=== PATIENT | male | born 1955 | race Caucasian/White ===

== ENCOUNTER 2019-06-23 11:32 | Inpatient (IN) ==
[2019-06-23] MEDS ORDERED: Famotidine 20 MG/2 ML VIAL IVP ONE (12:47)
[2019-06-23] MEDS ORDERED: Acetaminophen IV 1,000 MG/100 ML INFUS..BTL IVPB ONE (12:47)
[2019-06-23] MEDS ORDERED: Pregabalin 75 MG CAPSULE PO ONE (12:47)
[2019-06-23] MEDS ORDERED: CeFAZolin Syr 2,000MG/20 ML 2,000 MG/20 ML SYRINGE IVPB ONE (12:51)
[2019-06-23] MEDS ORDERED: *HR* HYDROmorphone 2 MG TABLET PO PRN (12:51)
[2019-06-23] MEDS ORDERED: Albuterol 2.5 MG/3 ML NEBULIZER IH PRN (12:51)
[2019-06-23] MEDS ORDERED: *HR* OxyCODONE Immed Rel 5 MG TABLET PO PRN (12:51)
[2019-06-23] MEDS ORDERED: *HR* Promethazine 25 MG/ML VIAL IVP PRN (12:51)
[2019-06-23] MEDS ORDERED: *HR* Labetalol 20 MG/4 ML SYRINGE IVP PRN (12:53)
[2019-06-23] MEDS ORDERED: Lidocaine -MPF 2% 2 ML VIAL ONE (12:55)
[2019-06-23] MEDS ORDERED: Ondansetron 4 MG/2 ML VIAL ONE (12:55)
[2019-06-23] MEDS ORDERED: *HR* Rocuronium Bromide 50 MG/5 ML VIAL ONE (12:55)
[2019-06-23] MEDS ORDERED: *HR* FentaNYL (PF) 100 MCG/2 ML VIAL ONE (12:55)
[2019-06-23] MEDS ORDERED: *HR* Propofol 200 MG/20 ML VIAL IVP ONE (12:55)
[2019-06-23] MEDS ORDERED: Dexamethasone 4 MG/ML VIAL ONE (12:55)
[2019-06-23] MEDS ORDERED: Ringers Solution, Lactated 1,000 ML IVC SCH ×2 (13:00→21:03)
[2019-06-23] MEDS: Celecoxib 200 MG CAPSULE PO ONE (13:05)
[2019-06-23 14:00] LABS: INR 1.6; Prothrombin Time 17.9 Seconds (9.4-12.1)
[2019-06-23 14:03] LABS: Activated Partial Thrombo Time 39.6 Seconds (26.0-36.0)
[2019-06-23] MEDS ORDERED: *HR* Labetalol 20 MG/4 ML SYRINGE IVP ONE (15:03)
[2019-06-23] MEDS: *HR* OxyCODONE/APAP 5/325 TABLET PO PRN (16:05)
[2019-06-23] MEDS ORDERED: *HR* Warfarin 1 MG TABLET PO SCH (21:15)
[2019-06-24] MEDS: *HR* OxyCODONE/APAP 5/325 TABLET PO PRN ×3 (01:24→20:14)
[2019-06-24] MEDS ORDERED: Ipratropium/Albuterol Neb 3 ML IH STA (09:08)
[2019-06-24] MEDS: Aspirin Enteric Coated 81 MG Tablet PO SCH (10:14)
[2019-06-24] MEDS: Furosemide 20 MG TABLET PO SCH (10:14)
[2019-06-24] MEDS ORDERED: Ibuprofen 800 MG TABLET PO ONE (13:51)
[2019-06-24] MEDS ORDERED: Acetaminophen 325 MG TABLET PO PRN (14:26)
[2019-06-24] MEDS ORDERED: *HR* FentaNYL (PF) 100 MCG/2 ML VIAL IVP ONE (15:06)
[2019-06-24 15:31] LABS: Basophils % 0.2 %; Immature Granulocytes % 0.6 % (0-4)
[2019-06-24 15:32] LABS: Eosinophils % 0.1 %; Hematocrit 36.9 % (37.5-50.1); Lymphocytes # 2.7 K/mcL (0.6-4.6); Lymphocytes % 13.7 %; Mean Corpuscular HGB Conc 29.8 g/dL (31.6-35.5); Mean Corpuscular Hemoglobin 24.1 pg (28.0-33.3); Mean Corpuscular Volume 80.7 fL (83.0-100.0); Monocytes # 1.9 K/mcL (0.0-1.3); Monocytes % 9.6 %; Neutrophils # 14.9 K/mcL (1.6-8.9); Platelet Count 323 K/mcL (140-400); Red Blood Count 4.57 M/mcL (4.19-5.50); Red Cell Distribution Width 16.1 % (11.5-14.5); Segmented Neutrophils % 75.8 %; White Blood Count 19.7 K/mcL (4.3-11.1)
[2019-06-24 15:54] LABS: BUN/Creatinine Ratio 19 (6-26); Blood Urea Nitrogen 17 mg/dL (8-23); Calcium 9.2 mg/dL (8.6-10.3); Carbon Dioxide 32 mEq/L (23-29); Chloride 101 mEq/L (98-107); Glucose 135 mg/dL (70-105); Osmolality,Calculated 288 (280-300); Potassium 4.2 mEq/L (3.5-5.1); Sodium 137 mEq/L (136-145); eGFR For African Americans > 60 (> 60); eGFR For Non-African Americans > 60 (> 60)
[2019-06-24] MEDS: Ipratropium/Albuterol Neb 3 ML IH SCH ×2 (16:13→21:16)
[2019-06-24 16:20] LABS: INR 1.5
[2019-06-24] MEDS ORDERED: *HR* Enoxaparin 120 MG/0.8 ML SYRINGE SQ SCH (18:00)
[2019-06-24] MEDS: Furosemide 40 MG/4 ML VIAL IVP ONE (18:00)
[2019-06-24] MEDS ORDERED: *HR* Warfarin 5 MG TABLET PO SCH (18:00)
[2019-06-24] MEDS: *HR* Enoxaparin 120 MG/0.8 ML SYRINGE SQ SCH (18:00)
[2019-06-24] MEDS ORDERED: Warfarin perPT PO PRN (18:00)
[2019-06-25] MEDS: *HR* OxyCODONE/APAP 5/325 TABLET PO PRN ×3 (03:37→18:14)
[2019-06-25] MEDS: Ipratropium/Albuterol Neb 3 ML IH SCH ×4 (04:09→22:26)
[2019-06-25] MEDS: *HR* Enoxaparin 120 MG/0.8 ML SYRINGE SQ SCH ×2 (05:59→18:14)
[2019-06-25 06:00] LABS: INR 1.9; Prothrombin Time 21.9 Seconds (9.4-12.1)
[2019-06-25 07:39] LABS: Potassium 4.7 mEq/L (3.5-5.1)
[2019-06-25 07:44] LABS: Basophils # 0.1 K/mcL (0.0-0.2); Basophils % 0.3 %; Immature Granulocytes % 0.5 % (0-4); Lymphocytes # 2.6 K/mcL (0.6-4.6); Lymphocytes % 12.2 %; Mean Corpuscular HGB Conc 29.4 g/dL (31.6-35.5); Mean Corpuscular Hemoglobin 24.2 pg (28.0-33.3); Mean Corpuscular Volume 82.5 fL (83.0-100.0); Mean Platelet Volume 11.1 fL (9.4-12.4); Monocytes # 2.9 K/mcL (0.0-1.3); Monocytes % 13.4 %; Neutrophils # 15.9 K/mcL (1.6-8.9); Platelet Count 298 K/mcL (140-400); Red Blood Count 3.88 M/mcL (4.19-5.50); Red Cell Distribution Width 16.3 % (11.5-14.5); Segmented Neutrophils % 73.6 %; White Blood Count 21.6 K/mcL (4.3-11.1)
[2019-06-25 07:45] LABS: Hemoglobin 9.4 g/dL (12.9-16.9)
[2019-06-25] MEDS ORDERED: Acetaminophen 325 MG TABLET PO PRN (08:48)
[2019-06-25] MEDS ORDERED: Metoclopramide 10 MG/2 ML VIAL IVP SCH (09:07)
[2019-06-25] MEDS: Aspirin Enteric Coated 81 MG Tablet PO SCH (10:17)
[2019-06-25] MEDS: Furosemide 20 MG TABLET PO SCH (10:18)
[2019-06-25] MEDS: Piperacillin/Tazobactam 3.375 GM in 0.9 % Sodium Chloride Mini Bag 100 ML IVPB SCH ×2 (10:20→18:12)
[2019-06-25] MEDS: 0.9 % Sodium Chloride 1,000 ML IVC SCH (10:21)
[2019-06-25] MEDS: Metoclopramide 20 MG in 0.9 % Sodium Chloride 50 ML IVPB SCH ×2 (10:22→18:13)
[2019-06-25] MEDS ORDERED: *HR* Warfarin 3 MG TABLET PO ONE (18:00)
[2019-06-26] MEDS: Piperacillin/Tazobactam 3.375 GM in 0.9 % Sodium Chloride Mini Bag 100 ML IVPB SCH ×2 (00:05→07:28)
[2019-06-26] MEDS: Metoclopramide 20 MG in 0.9 % Sodium Chloride 50 ML IVPB SCH ×2 (00:07→07:26)
[2019-06-26] MEDS: 0.9 % Sodium Chloride 1,000 ML IVC SCH ×2 (00:11→11:49)
[2019-06-26] MEDS: *HR* OxyCODONE/APAP 5/325 TABLET PO PRN ×2 (00:11→06:19)
[2019-06-26 03:01] LABS: Bilirubin,Urine Negative (Negative); Blood,Urine Negative (Negative); Clarity,Urine Cloudy (Clear); Color,Urine Yellow (Yellow); Glucose,Urine (UA) Normal (Normal); Ketones,Urine Negative (Negative); Leukocyte Esterase,Urine Negative (Negative); Nitrite,Urine Negative (Negative); Protein,Urine 30 mg/dL (Neg-Trace); Specific Gravity,Urine 1.026 (1.010-1.025); Urobilinogen,Urine Normal (Normal)
[2019-06-26 03:03] LABS: Hyaline Casts,Urine None Seen per lpf (None-Few)
[2019-06-26 03:22] LABS: Squamous Epithelial Cell,Urine Few per lpf (None-Few)
[2019-06-26 03:23] LABS: Bacteria,Urine Moderate per hpf (None-Few)
[2019-06-26 03:24] LABS: Calcium Oxalate Crystals,Urine Present
[2019-06-26] MEDS: Ipratropium/Albuterol Neb 3 ML IH SCH ×4 (03:46→21:45)
[2019-06-26 05:42] LABS: INR 3.7; Prothrombin Time 41.8 Seconds (9.4-12.1)
[2019-06-26 05:51] LABS: Calcium 8.8 mg/dL (8.6-10.3); Magnesium 1.9 mg/dL (1.6-2.6); Potassium 4.9 mEq/L (3.5-5.1)
[2019-06-26] MEDS: *HR* Enoxaparin 120 MG/0.8 ML SYRINGE SQ SCH (06:19)
[2019-06-26 06:39] LABS: Basophils # 0.1 K/mcL (0.0-0.2); Basophils % 0.2 %; Hematocrit 24.3 % (37.5-50.1); Hemoglobin 7.1 g/dL (12.9-16.9); Immature Granulocytes % 1.2 % (0-4); Lymphocytes # 1.5 K/mcL (0.6-4.6); Lymphocytes % 4.5 %; Mean Corpuscular HGB Conc 29.2 g/dL (31.6-35.5); Mean Corpuscular Hemoglobin 23.8 pg (28.0-33.3); Mean Corpuscular Volume 81.5 fL (83.0-100.0); Mean Platelet Volume 11.1 fL (9.4-12.4); Monocytes # 3.8 K/mcL (0.0-1.3); Monocytes % 11.4 %; Neutrophils # 27.8 K/mcL (1.6-8.9); Platelet Count 303 K/mcL (140-400); Red Blood Count 2.98 M/mcL (4.19-5.50); Red Cell Distribution Width 16.8 % (11.5-14.5); Segmented Neutrophils % 82.7 %
[2019-06-26 06:42] LABS: White Blood Count 33.6 K/mcL (4.3-11.1)
[2019-06-26 06:51] LABS: Large Platelets Present (Not Present); Platelet Estimate Normal (Normal)
[2019-06-26] MEDS: Aspirin Enteric Coated 81 MG Tablet PO SCH (07:25)
[2019-06-26] MEDS ORDERED: 0.9 % Sodium Chloride 1,000 ML IV ONE (07:37)
[2019-06-26] MEDS ORDERED: Furosemide 40 MG/4 ML VIAL IVP ONE ×2 (09:16→23:57)
[2019-06-26] MEDS ORDERED: *HR* Metoprolol 5 MG/5 ML VIAL IVP PRN ×2 (10:27→18:34)
[2019-06-26] MEDS ORDERED: D5% in Water 1,000 ML IVC PRN ×2 (10:32→18:34)
[2019-06-26] MEDS ORDERED: Dextrose Gel 15 GM/37.5 ML TUBE PO PRN ×4 (10:32→18:34)
[2019-06-26] MEDS ORDERED: *HR* Dextrose 50 % in Water (Syg) 50 ML SYRINGE IVP PRN (10:32)
[2019-06-26] MEDS ORDERED: Potassium Phosphate 44 MEQ in 0.9 % Sodium Chloride 250 ML IVPB PRN ×2 (10:33→18:34)
[2019-06-26] MEDS ORDERED: Calcium Gluconate 1gm/50mL 1 GM/50 ML BAG IVPB PRN (10:33)
[2019-06-26] MEDS ORDERED: Potassium Chloride 40 MEQ/200 ML BAG IVPB PRN ×2 (10:33→18:34)
[2019-06-26] MEDS ORDERED: *HR* Vecuronium 10 MG VIAL IVP ONE (10:49)
[2019-06-26] MEDS ORDERED: Artificial Tears SOLN 15 ML BOTTLE BOTH EYES PRN ×2 (10:50→18:34)
[2019-06-26] MEDS ORDERED: 0.9 % Sodium Chloride 250 ML ONE ×5 (10:54→21:20)
[2019-06-26] MEDS ORDERED: Ringers Solution, Lactated 1,000 ML ONE (10:57)
[2019-06-26] MEDS ORDERED: Chlorhexidine Rinse 15 ML MOUTHWASH MM SCH (11:00)
[2019-06-26] MEDS ORDERED: Sodium Bicarbonate 50 MEQ/50 ML VIAL ONE ×2 (11:12→12:37)
[2019-06-26] MEDS ORDERED: Sodium Bicarbonate 50 MEQ/50 ML VIAL IVP ONE ×2 (11:14→12:50)
[2019-06-26] MEDS ORDERED: Sodium Bicarbonate 150 MEQ in D5% in Water 1,000 ML IVC SCH ×3 (11:15→18:34)
[2019-06-26 11:21] LABS: ABG Base Excess -24 mEq/L (-2 to 3); ABG HCO3 8 mEq/L (21-27); ABG Oxygen Saturation 86 % (95-98); ABG PCO2 48 mmHg (35-45); ABG PH 6.84 pH Units (7.32-7.45); ABG PO2 91 mmHg (85-104); ABG TCO2 10 mEq/L (20-26); Blood Gas Modality AF; Blood Gas VT 500 cc
[2019-06-26 11:24] LABS: INR 5.6; Prothrombin Time 63.4 Seconds (9.4-12.1)
[2019-06-26 11:26] LABS: Troponin I 0.06 ng/mL (< 0.04)
[2019-06-26] MEDS ORDERED: *HR* Phytonadione 10 MG/ML AMPUL SQ ONE (11:27)
[2019-06-26] MEDS ORDERED: 0.9 % Sodium Chloride 500 ML ONE (11:30)
[2019-06-26 11:31] LABS: Basophils % 0.2 %; Red Cell Distribution Width 16.8 % (11.5-14.5); Segmented Neutrophils % 78.1 %
[2019-06-26 11:33] LABS: Basophils # 0.1 K/mcL (0.0-0.2); Immature Granulocytes % 6.6 % (0-4); Lymphocytes # 2.8 K/mcL (0.6-4.6); Lymphocytes % 9.3 %; Mean Corpuscular HGB Conc 28.9 g/dL (31.6-35.5); Mean Corpuscular Hemoglobin 24.6 pg (28.0-33.3); Mean Corpuscular Volume 85.3 fL (83.0-100.0); Mean Platelet Volume 11.2 fL (9.4-12.4); Monocytes # 1.7 K/mcL (0.0-1.3); Monocytes % 5.8 %; Neutrophils # 23.4 K/mcL (1.6-8.9); Nucleated Red Blood Cells 0.4 /100 WBC (0); Platelet Count 242 K/mcL (140-400); Red Blood Count 2.11 M/mcL (4.19-5.50)
[2019-06-26 11:36] LABS: Hemoglobin 5.2 g/dL (12.9-16.9)
[2019-06-26 11:37] LABS: Platelet Estimate Normal (Normal)
[2019-06-26] MEDS: FentaNYL (PF) 1,000 MCG in 0.9 % Sodium Chloride 80 ML IVC SCH ×2 (11:43→12:30)
[2019-06-26] MEDS: Celecoxib 200 MG CAPSULE PO ONE (11:49)
[2019-06-26] MEDS ORDERED: Protamine Sulfate 50 MG/5 ML VIAL IVP ONE (11:50)
[2019-06-26] MEDS ORDERED: Insulin LISPRO 300 UNITS/3 ML VIAL SQ SCH (12:00)
[2019-06-26] MEDS ORDERED: Dexmedetomidine HCl 400 MCG/100 ML MLS IVC ONE (12:02)
[2019-06-26] MEDS ORDERED: HUM PROTHROMBIN CPLX(PCC)4FACT 2,500 UNIT in Water for inj. (sterile) 100 ML IVPB ONE (12:06)
[2019-06-26] MEDS: Dexmedetomidine HCl 400 MCG/100 ML MLS IVC SCH ×3 (12:08→22:29)
[2019-06-26 12:21] LABS: Albumin 3.1 g/dL (3.5-5.7); Bilirubin,Direct 0.4 mg/dL (0.0-0.2); Bilirubin,Indirect 0.4 mg/dL (0.0-1.0); Bilirubin,Total 0.8 mg/dL (0.3-1.0); Globulin 3.1 g/dL (2.4-3.5); Magnesium 2.6 mg/dL (1.6-2.6); Phosphorous 11.4 mg/dL (2.7-4.5); Potassium 6.2 mEq/L (3.5-5.1); Total Protein 6.2 g/dL (6.4-8.9)
[2019-06-26 12:24] LABS: ABG Base Excess -17 mEq/L (-2 to 3); ABG HCO3 11 mEq/L (21-27); ABG Oxygen Saturation 92 % (95-98); ABG PCO2 39 mmHg (35-45); ABG PH 7.08 pH Units (7.32-7.45); ABG PO2 88 mmHg (85-104); ABG TCO2 13 mEq/L (20-26); Blood Gas Modality AF; Blood Gas VT 500 cc
[2019-06-26 12:41] LABS: Uric Acid 6.8 mg/dL (2.3-7.6)
[2019-06-26] MEDS: Artificial Tears SOLN 15 ML BOTTLE BOTH EYES SCH ×3 (13:17→20:41)
[2019-06-26] MEDS: Norepinephrine 4 MG in 0.9 % Sodium Chloride 250 ML IVC SCH ×2 (13:18→15:41)
[2019-06-26 13:50] LABS: Hematocrit 22.1 % (37.5-50.1); Hemoglobin 6.6 g/dL (12.9-16.9)
[2019-06-26] MEDS ORDERED: Vasopressin 40 UNIT in D5% in Water 100 ML IVC SCH (14:00)
[2019-06-26 14:03] LABS: ABG Base Excess -13 mEq/L (-2 to 3); ABG HCO3 15 mEq/L (21-27); ABG Oxygen Saturation 88 % (95-98); ABG PCO2 42 mmHg (35-45); ABG PH 7.14 pH Units (7.32-7.45); ABG PO2 70 mmHg (85-104); ABG TCO2 16 mEq/L (20-26); Blood Gas Modality AF; Blood Gas VT 550 cc
[2019-06-26 15:22] LABS: Activated Partial Thrombo Time 32.5 Seconds (26.0-36.0); INR 1.9; Prothrombin Time 21.1 Seconds (9.4-12.1)
[2019-06-26] MEDS ORDERED: Lidocaine HCL 4 ML Topical Solution (Laryng-O-Jet Kit Sterile Pak) TP ONE (15:44)
[2019-06-26] MEDS ORDERED: *HR* FentaNYL (PF) 100 MCG/2 ML VIAL ONE (15:44)
[2019-06-26] MEDS ORDERED: *HR* Midazolam HCl 5 MG/5 ML VIAL IVP ONE (15:44)
[2019-06-26] MEDS ORDERED: *HR* Rocuronium Bromide 50 MG/5 ML VIAL ONE (15:44)
[2019-06-26] MEDS ORDERED: *HR* Etomidate 40 MG/20 ML VIAL IVP ONE (15:44)
[2019-06-26] MEDS ORDERED: *HR* Succinylcholine 200 MG/10 ML VIAL IVP ONE (15:44)
[2019-06-26] MEDS ORDERED: Lidocaine -MPF 2% 2 ML VIAL ONE (15:44)
[2019-06-26 15:46] LABS: Bilirubin,Urine Negative (Negative); Blood,Urine Large (Negative); Clarity,Urine Cloudy (Clear); Color,Urine Yellow (Yellow); Glucose,Urine (UA) Normal (Normal); Ketones,Urine Negative (Negative); Leukocyte Esterase,Urine Negative (Negative); Nitrite,Urine Negative (Negative); Protein,Urine 30 mg/dL (Neg-Trace); Urobilinogen,Urine Normal (Normal)
[2019-06-26 15:48] LABS: Bacteria,Urine None Seen per hpf (None-Few); Squamous Epithelial Cell,Urine Many per lpf (None-Few); WBC,Urine 15-30 per hpf (0-3)
[2019-06-26] MEDS ORDERED: Heparin 1,000 UNITS/500 mL 500 ML ONE (15:55)
[2019-06-26] MEDS ORDERED: Piperacillin/Tazobactam 3.375 GM in 0.9 % Sodium Chloride Mini Bag 100 ML IVPB SCH (16:00)
[2019-06-26 16:16] LABS: Hyaline Casts,Urine Few per lpf (None-Few)
[2019-06-26] MEDS ORDERED: CefOXitin 1,000 MG VIAL ONE (16:19)
[2019-06-26] MEDS ORDERED: *HR* Vasopressin 20 UNIT/ML VIAL ONE ×2 (16:25→16:26)
[2019-06-26] MEDS ORDERED: *HR* PHENYLEPHRINE 1,000 MCG/10 ML SYRINGE IVP ONE (17:20)
[2019-06-26 17:47] LABS: Hematocrit 28.3 % (37.5-50.1); Hemoglobin 8.8 g/dL (12.9-16.9)
[2019-06-26] MEDS ORDERED: *HR* Midazolam HCl 2 MG/2 ML VIAL ONE (18:07)
[2019-06-26] MEDS ORDERED: FentaNYL (PF) 1,000 MCG in 0.9 % Sodium Chloride 80 ML IVC SCH (18:34)
[2019-06-26] MEDS ORDERED: Norepinephrine 4 MG in 0.9 % Sodium Chloride 250 ML IVC SCH (18:34)
[2019-06-26 18:43] LABS: Alanine Aminotransferase 4055 Units/L (7-52); Albumin 2.9 g/dL (3.5-5.7); Albumin/Globulin Ratio 1.1 (1.1-2.2); Alkaline Phosphatase 101 Units/L (34-104); Aspartate Amino Transferase > 3000 Units/L (13-39); BUN/Creatinine Ratio 12 (6-26); Bilirubin,Total 1.6 mg/dL (0.3-1.0); Blood Urea Nitrogen 47 mg/dL (8-23); Calcium 7.4 mg/dL (8.6-10.3); Carbon Dioxide 17 mEq/L (23-29); Chloride 100 mEq/L (98-107); Globulin 2.6 g/dL (2.4-3.5); Glucose 130 mg/dL (70-105); Magnesium 2.2 mg/dL (1.6-2.6); Osmolality,Calculated 302 (280-300); Potassium 5.6 mEq/L (3.5-5.1); Sodium 139 mEq/L (136-145); Total Protein 5.5 g/dL (6.4-8.9); eGFR For African Americans 20 (> 60); eGFR For Non-African Americans 16 (> 60)
[2019-06-26 19:10] LABS: ABG Base Excess -11 mEq/L (-2 to 3); ABG HCO3 18 mEq/L (21-27); ABG Oxygen Saturation 86 % (95-98); ABG PCO2 51 mmHg (35-45); ABG PH 7.16 pH Units (7.32-7.45); ABG PO2 66 mmHg (85-104); ABG TCO2 20 mEq/L (20-26)
[2019-06-26] MEDS: Chlorhexidine Rinse 15 ML MOUTHWASH MM SCH (20:40)
[2019-06-26] MEDS ORDERED: Docusate Oral Soln 100 MG/10 ML UDC GTUBE SCH (21:00)
[2019-06-27] MEDS ORDERED: Piperacillin/Tazobactam 3.375 GM in 0.9 % Sodium Chloride Mini Bag 100 ML IVPB SCH
[2019-06-27 00:07] LABS: ABG Base Excess -5 mEq/L (-2 to 3); ABG HCO3 22 mEq/L (21-27); ABG Oxygen Saturation 84 % (95-98); ABG PCO2 51 mmHg (35-45); ABG PH 7.25 pH Units (7.32-7.45); ABG PO2 56 mmHg (85-104); ABG TCO2 24 mEq/L (20-26); Blood Gas Modality AF; Blood Gas VT 550 cc
[2019-06-27] MEDS ORDERED: Cisatracurium 200 MG in 0.9 % Sodium Chloride 180 ML IVC SCH (00:15)
[2019-06-27 00:54] LABS: Hematocrit 31.4 % (37.5-50.1); Mean Corpuscular HGB Conc 31.8 g/dL (31.6-35.5); Mean Corpuscular Hemoglobin 27.4 pg (28.0-33.3); Mean Platelet Volume 11.7 fL (9.4-12.4); Platelet Count 118 K/mcL (140-400); Red Blood Count 3.65 M/mcL (4.19-5.50); Red Cell Distribution Width 16.4 % (11.5-14.5); White Blood Count 17.9 K/mcL (4.3-11.1)
[2019-06-27] MEDS: Artificial Tears SOLN 15 ML BOTTLE BOTH EYES SCH ×7 (00:54→23:11)
[2019-06-27] MEDS: Insulin LISPRO 300 UNITS/3 ML VIAL SQ SCH ×5 (00:58→23:11)
[2019-06-27] MEDS: Furosemide 40 MG/4 ML VIAL IVP ONE (01:00)
[2019-06-27 01:11] LABS: ABG Base Excess -5 mEq/L (-2 to 3); ABG HCO3 23 mEq/L (21-27); ABG Oxygen Saturation 86 % (95-98); ABG PCO2 60 mmHg (35-45); ABG PO2 63 mmHg (85-104); ABG TCO2 25 mEq/L (20-26); Blood Gas Modality AF; Blood Gas VT 380 cc
[2019-06-27 01:16] LABS: Magnesium 2.3 mg/dL (1.6-2.6); Phosphorous 9.2 mg/dL (2.7-4.5)
[2019-06-27] MEDS: Vecuronium 50 MG in 0.9 % Sodium Chloride 200 ML IVC SCH ×2 (01:18→19:00)
[2019-06-27 02:08] LABS: INR 2.4; Prothrombin Time 27.7 Seconds (9.4-12.1)
[2019-06-27 02:10] LABS: Activated Partial Thrombo Time 37.4 Seconds (26.0-36.0)
[2019-06-27 02:27] LABS: ABG Base Excess -4 mEq/L (-2 to 3); ABG HCO3 25 mEq/L (21-27); ABG Oxygen Saturation 88 % (95-98); ABG PCO2 64 mmHg (35-45); ABG PH 7.19 pH Units (7.32-7.45); ABG PO2 69 mmHg (85-104); ABG TCO2 27 mEq/L (20-26); Blood Gas Modality AF; Blood Gas VT 400 cc
[2019-06-27 02:28] LABS: ABG Ionized Calcium 0.91 mmol/L (1.15-1.35)
[2019-06-27 02:29] LABS: Alanine Aminotransferase 4204 Units/L (7-52); Albumin 2.8 g/dL (3.5-5.7); Albumin/Globulin Ratio 1.1 (1.1-2.2); Alkaline Phosphatase 119 Units/L (34-104); Aspartate Amino Transferase > 3000 Units/L (13-39); BUN/Creatinine Ratio 13 (6-26); Bilirubin,Direct 1.5 mg/dL (0.0-0.2); Bilirubin,Indirect 0.7 mg/dL (0.0-1.0); Bilirubin,Total 2.2 mg/dL (0.3-1.0); Blood Urea Nitrogen 50 mg/dL (8-23); Calcium 7.4 mg/dL (8.6-10.3); Carbon Dioxide 23 mEq/L (23-29); Chloride 98 mEq/L (98-107); Globulin 2.6 g/dL (2.4-3.5); Glucose 167 mg/dL (70-105); Osmolality,Calculated 303 (280-300); Potassium 4.9 mEq/L (3.5-5.1); Sodium 138 mEq/L (136-145); Total Protein 5.4 g/dL (6.4-8.9); Troponin I 2.22 ng/mL (< 0.04); eGFR For African Americans 20 (> 60); eGFR For Non-African Americans 16 (> 60)
[2019-06-27] MEDS: Norepinephrine 16 MG in 0.9 % Sodium Chloride 500 ML IVC SCH (02:44)
[2019-06-27] MEDS: Vasopressin 40 UNIT in D5% in Water 100 ML IVC SCH ×2 (03:10→05:26)
[2019-06-27] MEDS: Dexmedetomidine HCl 400 MCG/100 ML MLS IVC SCH ×4 (03:11→19:00)
[2019-06-27] MEDS: Sodium Bicarbonate 50 MEQ/50 ML VIAL IVP SCH ×5 (03:19→21:09)
[2019-06-27] MEDS: Ipratropium/Albuterol Neb 3 ML IH SCH ×4 (03:33→21:42)
[2019-06-27 04:14] LABS: Hematocrit 30.6 % (37.5-50.1); Hemoglobin 9.7 g/dL (12.9-16.9); Mean Corpuscular HGB Conc 31.7 g/dL (31.6-35.5); Mean Corpuscular Hemoglobin 27.2 pg (28.0-33.3); Mean Platelet Volume 11.9 fL (9.4-12.4); Nucleated Red Blood Cells 0.8 /100 WBC (0); Platelet Count 114 K/mcL (140-400); Red Blood Count 3.56 M/mcL (4.19-5.50); Red Cell Distribution Width 16.1 % (11.5-14.5); White Blood Count 15.1 K/mcL (4.3-11.1)
[2019-06-27 04:23] LABS: INR 2.4
[2019-06-27 04:29] LABS: Potassium 5.4 mEq/L (3.5-5.1)
[2019-06-27 04:46] LABS: ABG Base Excess -3 mEq/L (-2 to 3); ABG HCO3 27 mEq/L (21-27); ABG Oxygen Saturation 86 % (95-98); ABG PCO2 67 mmHg (35-45); ABG PH 7.21 pH Units (7.32-7.45); ABG PO2 64 mmHg (85-104); ABG TCO2 29 mEq/L (20-26); Blood Gas Modality ASSIST CONTROL; Blood Gas VT 400 cc
[2019-06-27] MEDS: Calcium Gluconate 1gm/50mL 1 GM/50 ML BAG IVPB PRN ×2 (05:26→14:25)
[2019-06-27 05:42] LABS: Lymphocytes # 2.1 K/mcL (0.6-4.6); Monocytes # 0.3 K/mcL (0.0-1.3); Neutrophils # 12.1 K/mcL (1.6-8.9)
[2019-06-27 05:43] LABS: Platelet Estimate Slight Decrease (Normal)
[2019-06-27] MEDS: Meropenem 500 MG in Water for inj. (sterile) 10 ML IVP SCH ×2 (06:20→18:10)
[2019-06-27] MEDS ORDERED: HUM PROTHROMBIN CPLX(PCC)4FACT 2,500 UNIT in Water for inj. (sterile) 100 ML IVPB ONE (08:11)
[2019-06-27] MEDS: Chlorhexidine Rinse 15 ML MOUTHWASH MM SCH ×2 (08:28→19:56)
[2019-06-27] MEDS: Pantoprazole 40 MG VIAL IVP SCH (08:30)
[2019-06-27] MEDS ORDERED: [UNRECOGNIZED DRUG - OTHER] IVPB ONE (08:45)
[2019-06-27] MEDS ORDERED: WATER FOR INJ IVPB ONE (08:45)
[2019-06-27] MEDS ORDERED: HUM PROTHROMBIN CPLX IVPB ONE (08:45)
[2019-06-27] MEDS ORDERED: Pantoprazole 40 MG VIAL IVP SCH (09:00)
[2019-06-27] MEDS ORDERED: *HR* Propofol 200 MG/20 ML VIAL IVP ONE (09:16)
[2019-06-27] MEDS ORDERED: *HR* Midazolam HCl 5 MG/5 ML VIAL IVP ONE (09:16)
[2019-06-27] MEDS ORDERED: *HR* Heparin 5,000 UNIT/ML VIAL ONE (10:13)
[2019-06-27] MEDS ORDERED: 0.9 % Sodium Chloride 1,000 ML PRIME SCH (10:30)
[2019-06-27] MEDS ORDERED: Perflutren Lipid Microsphere 1.3 ML in 0.9 % Sodium Chloride 8.7 ML IVP ONE (11:17)
[2019-06-27 12:14] LABS: Basophils % 0.2 %; Hematocrit 31.7 % (37.5-50.1); Immature Granulocytes % 1.1 % (0-4); Lymphocytes # 0.8 K/mcL (0.6-4.6); Lymphocytes % 5.4 %; Mean Corpuscular HGB Conc 31.5 g/dL (31.6-35.5); Mean Corpuscular Hemoglobin 27.4 pg (28.0-33.3); Mean Corpuscular Volume 86.8 fL (83.0-100.0); Mean Platelet Volume 11.7 fL (9.4-12.4); Monocytes # 0.9 K/mcL (0.0-1.3); Monocytes % 6.6 %; Nucleated Red Blood Cells 1.8 /100 WBC (0); Platelet Count 103 K/mcL (140-400); Red Blood Count 3.65 M/mcL (4.19-5.50); Red Cell Distribution Width 16.8 % (11.5-14.5); Segmented Neutrophils % 86.7 %; White Blood Count 14.1 K/mcL (4.3-11.1)
[2019-06-27 12:18] LABS: Neutrophils # 12.2 K/mcL (1.6-8.9)
[2019-06-27 12:22] LABS: VBG Ionized Calcium 0.82 mmol/L (1.15-1.35)
[2019-06-27 12:23] LABS: ABG Base Excess -1 mEq/L (-2 to 3); ABG HCO3 27 mEq/L (21-27); ABG Oxygen Saturation 82 % (95-98); ABG PCO2 62 mmHg (35-45); ABG PH 7.25 pH Units (7.32-7.45); ABG PO2 55 mmHg (85-104); ABG TCO2 29 mEq/L (20-26); Blood Gas Modality AF; Blood Gas VT 400 cc
[2019-06-27] MEDS: *HR* Dextrose 50 % in Water (Syg) 50 ML SYRINGE IVP PRN ×2 (12:33→16:54)
[2019-06-27 12:48] LABS: Alanine Aminotransferase 4248 Units/L (7-52); Albumin 2.7 g/dL (3.5-5.7); Albumin/Globulin Ratio 1.1 (1.1-2.2); Alkaline Phosphatase 168 Units/L (34-104); Aspartate Amino Transferase > 3000 Units/L (13-39); BUN/Creatinine Ratio 12 (6-26); Bilirubin,Direct 1.3 mg/dL (0.0-0.2); Bilirubin,Indirect 0.8 mg/dL (0.0-1.0); Bilirubin,Total 2.1 mg/dL (0.3-1.0); Blood Urea Nitrogen 56 mg/dL (8-23); Carbon Dioxide 25 mEq/L (23-29); Chloride 98 mEq/L (98-107); Globulin 2.5 g/dL (2.4-3.5); Glucose 51 mg/dL (70-105); Osmolality,Calculated 305 (280-300); Potassium 5.6 mEq/L (3.5-5.1); Sodium 141 mEq/L (136-145); Total Protein 5.2 g/dL (6.4-8.9); eGFR For African Americans 15 (> 60); eGFR For Non-African Americans 12 (> 60)
[2019-06-27] MEDS: PrismaSATE BGK 4/2.5 5,000 ML CRRT SCH ×6 (13:07→23:12)
[2019-06-27 13:20] LABS: Troponin I 13.34 ng/mL (< 0.04)
[2019-06-27] MEDS ORDERED: 0.9 % Sodium Chloride 1,000 ML IVC ONE (15:02)
[2019-06-27 16:40] LABS: Calcium 6.6 mg/dL (8.6-10.3); Magnesium 2.1 mg/dL (1.6-2.6); Potassium 5.3 mEq/L (3.5-5.1)
[2019-06-27 16:45] LABS: VBG Ionized Calcium 0.83 mmol/L (1.15-1.35)
[2019-06-27 17:46] LABS: Phosphorous 8.9 mg/dL (2.7-4.5)
[2019-06-27] MEDS: *HR* Heparin 5,000 UNIT/ML VIAL CRRT PRN (17:50)
[2019-06-27] MEDS: Hydrocortisone Sodium Succ 100 MG/2 ML VIAL IVP SCH (18:10)
[2019-06-27] MEDS: Calcium Gluconate 1gm/50mL 1 GM/50 ML BAG IVPB SCH ×2 (18:11→19:27)
[2019-06-27] MEDS ORDERED: 0.9 % Sodium Chloride 1,000 ML PRIME PRN (19:59)
[2019-06-27 22:08] LABS: INR 1.8; Prothrombin Time 20.4 Seconds (9.4-12.1)
[2019-06-27 22:11] LABS: Activated Partial Thrombo Time 34.8 Seconds (26.0-36.0)
[2019-06-27 23:04] LABS: ABG Ionized Calcium 0.85 mmol/L (1.15-1.35)
[2019-06-28] MEDS: Calcium Gluconate 1gm/50mL 1 GM/50 ML BAG IVPB PRN ×4 (00:18→15:13)
[2019-06-28] MEDS: Hydrocortisone Sodium Succ 100 MG/2 ML VIAL IVP SCH ×4 (00:18→17:39)
[2019-06-28] MEDS: Sodium Bicarbonate 50 MEQ/50 ML VIAL IVP SCH ×2 (00:19→04:16)
[2019-06-28] MEDS: Dexmedetomidine HCl 400 MCG/100 ML MLS IVC SCH ×3 (01:00→16:34)
[2019-06-28] MEDS: Vasopressin 40 UNIT in D5% in Water 100 ML IVC SCH (01:00)
[2019-06-28 01:18] LABS: Calcium 6.9 mg/dL (8.6-10.3); Magnesium 2.3 mg/dL (1.6-2.6); Phosphorous 8.5 mg/dL (2.7-4.5); Potassium 6.5 mEq/L (3.5-5.1)
[2019-06-28] MEDS ORDERED: Insulin Human Regular 10 UNIT in 0.9 % Sodium Chloride 10 ML IV ONE (01:27)
[2019-06-28] MEDS ORDERED: Albuterol 2.5 MG/3 ML NEBULIZER IH ONE (01:28)
[2019-06-28] MEDS ORDERED: Albuterol 2.5 MG/3 ML NEBULIZER ONE (01:30)
[2019-06-28] MEDS: Ipratropium/Albuterol Neb 3 ML IH SCH ×4 (03:23→21:18)
[2019-06-28] MEDS: PrismaSATE BGK 4/2.5 5,000 ML CRRT SCH ×4 (04:12→09:36)
[2019-06-28] MEDS: Artificial Tears SOLN 15 ML BOTTLE BOTH EYES SCH ×5 (04:16→19:44)
[2019-06-28] MEDS: Norepinephrine 16 MG in 0.9 % Sodium Chloride 500 ML IVC SCH ×2 (04:16→17:29)
[2019-06-28 04:48] LABS: ABG Base Excess 0 mEq/L (-2 to 3); ABG HCO3 30 mEq/L (21-27); ABG Oxygen Saturation 90 % (95-98); ABG PCO2 76 mmHg (35-45); ABG PO2 74 mmHg (85-104); ABG TCO2 32 mEq/L (20-26); Blood Gas Modality ASSIST CONTROL; Blood Gas VT 400 cc
[2019-06-28 04:58] LABS: Lymphocytes % 4.4 %
[2019-06-28 04:59] LABS: Basophils # 0.2 K/mcL (0.0-0.2); Basophils % 0.7 %; Hematocrit 35.5 % (37.5-50.1); Immature Granulocytes % 4.4 % (0-4); Lymphocytes # 1.1 K/mcL (0.6-4.6); Mean Corpuscular Hemoglobin 27.6 pg (28.0-33.3); Mean Platelet Volume 12.4 fL (9.4-12.4); Monocytes # 1.6 K/mcL (0.0-1.3); Monocytes % 6.3 %; Neutrophils # 21.7 K/mcL (1.6-8.9); Nucleated Red Blood Cells 3.1 /100 WBC (0); Platelet Count 140 K/mcL (140-400); Red Blood Count 3.99 M/mcL (4.19-5.50); Red Cell Distribution Width 17.2 % (11.5-14.5); Segmented Neutrophils % 84.2 %; White Blood Count 25.8 K/mcL (4.3-11.1)
[2019-06-28 05:01] LABS: ABG Ionized Calcium 0.85 mmol/L (1.15-1.35)
[2019-06-28] MEDS: Meropenem 500 MG in Water for inj. (sterile) 10 ML IVP SCH (05:13)
[2019-06-28 05:15] LABS: INR 1.9; Prothrombin Time 21.6 Seconds (9.4-12.1)
[2019-06-28] MEDS: Insulin LISPRO 300 UNITS/3 ML VIAL SQ SCH ×3 (05:16→17:38)
[2019-06-28 05:17] LABS: Activated Partial Thrombo Time 33.9 Seconds (26.0-36.0)
[2019-06-28 06:03] LABS: Alanine Aminotransferase 4265 Units/L (7-52); Albumin 2.9 g/dL (3.5-5.7); Alkaline Phosphatase 251 Units/L (34-104); Aspartate Amino Transferase > 3000 Units/L (13-39); BUN/Creatinine Ratio 13 (6-26); Bilirubin,Direct 1.6 mg/dL (0.0-0.2); Bilirubin,Total 2.6 mg/dL (0.3-1.0); Blood Urea Nitrogen 42 mg/dL (8-23); Carbon Dioxide 28 mEq/L (23-29); Chloride 99 mEq/L (98-107); Glucose 95 mg/dL (70-105); Lactate Dehydrogenase > 3600 Units/L (140-271); Magnesium 2.3 mg/dL (1.6-2.6); Osmolality,Calculated 298 (280-300); Phosphorous 8.1 mg/dL (2.7-4.5); Potassium 6.2 mEq/L (3.5-5.1); Sodium 139 mEq/L (136-145); Total Protein 5.9 g/dL (6.4-8.9); eGFR For African Americans 23 (> 60); eGFR For Non-African Americans 19 (> 60)
[2019-06-28 06:08] LABS: Platelet Estimate Slight Decrease (Normal)
[2019-06-28 06:34] LABS: VBG Ionized Calcium 0.89 mmol/L (1.15-1.35)
[2019-06-28] MEDS: Pantoprazole 40 MG VIAL IVP SCH (08:27)
[2019-06-28] MEDS: Chlorhexidine Rinse 15 ML MOUTHWASH MM SCH ×2 (08:27→21:32)
[2019-06-28] MEDS: Sodium Bicarbonate 150 MEQ in D5% in Water 1,000 ML IVC SCH ×3 (09:28→20:46)
[2019-06-28] MEDS ORDERED: Acetylcysteine 15,000 MG in D5% in Water 250 ML IVC ONE (10:15)
[2019-06-28] MEDS ORDERED: Acetylcysteine 5,000 MG in D5% in Water 500 ML IVC ONE (11:37)
[2019-06-28] MEDS ORDERED: PRISMASATE BGK CRRT SCH ×2 (12:15→18:00)
[2019-06-28] MEDS ORDERED: CALCIUM GLUCONATE CRRT SCH ×2 (12:15→18:00)
[2019-06-28 12:31] LABS: VBG Ionized Calcium 0.83 mmol/L (1.15-1.35)
[2019-06-28 12:42] LABS: Calcium 6.8 mg/dL (8.6-10.3); Potassium 6.1 mEq/L (3.5-5.1)
[2019-06-28] MEDS ORDERED: Calcium Gluconate 1gm/50mL 1 GM/50 ML BAG IVPB PRN (13:26)
[2019-06-28 14:08] LABS: ABG Base Excess -1 mEq/L (-2 to 3); ABG HCO3 27 mEq/L (21-27); ABG Oxygen Saturation 93 % (95-98); ABG PCO2 55 mmHg (35-45); ABG PH 7.29 pH Units (7.32-7.45); ABG PO2 78 mmHg (85-104); ABG TCO2 28 mEq/L (20-26); Blood Gas Modality AF; Blood Gas VT 500 cc
[2019-06-28] MEDS ORDERED: Acetylcysteine 10,000 MG in D5% in Water 1,000 ML IVC ONE (15:51)
[2019-06-28] MEDS ORDERED: Piperacillin/Tazobactam 3.375 GM in 0.9 % Sodium Chloride Mini Bag 100 ML IVPB SCH (16:00)
[2019-06-28 18:44] LABS: ABG Base Excess -1 mEq/L (-2 to 3); ABG HCO3 26 mEq/L (21-27); ABG Oxygen Saturation 99 % (95-98); ABG PCO2 52 mmHg (35-45); ABG PH 7.31 pH Units (7.32-7.45); ABG PO2 159 mmHg (85-104); ABG TCO2 28 mEq/L (20-26)
[2019-06-28 18:52] LABS: Calcium 6.9 mg/dL (8.6-10.3); Potassium 5.2 mEq/L (3.5-5.1)
[2019-06-28] MEDS ORDERED: Phenylephrine 10 MG in 0.9 % Sodium Chloride 250 ML IVC SCH (19:30)
[2019-06-28] MEDS ORDERED: Phenylephrine 50 MG in 0.9 % Sodium Chloride 250 ML IVC SCH (22:00)
[2019-06-28] MEDS ORDERED: Micafungin 100 MG in 0.9 % Sodium Chloride Mini Bag 100 ML IVPB SCH (22:00)
[2019-06-28 23:13] VITALS: BP 94/66
[2019-06-29] MEDS: *HR* Heparin 5,000 UNIT/ML VIAL CRRT PRN (01:31)
== END 2019-06-29 03:01 | disposition expired | DRG 353 ==
LOC: 3ANU 11:32 → SAMDAY 11:32 → 3ANU 20:30 → SUATTDRO 06-25 14:07 → ICNU 06-26 09:44
PROVIDERS: ADMIT Surgery; ATTEND Internal Medicine